=== PATIENT | female | born 1940 | race Caucasian/White ===

== ENCOUNTER 2021-07-11 12:15 | Emergency (ER) | payer MEDICARE, SELFPAY ==
[2021-07-11] VITALS (13 sets, daily range): BP systolic 148–224; BP diastolic 80–115; PULSE 71–105; RESP 19–28; O2SAT 90–98
--- NOTE | 2021-07-11 12:20 | DI.RAD.S_ITS ---
PROCEDURE: XR CHEST 1V INDICATIONS: Chest pain and shortness of breath TECHNIQUE: One view of the chest was acquired. COMPARISON: None. FINDINGS: Surgical changes and devices: None. Lungs and pleura: Lungs are clear. No pleural effusions or pneumothorax. Mediastinum: Mediastinal contours appear normal. Heart size is normal. Bones and chest wall: No suspicious bony lesions. Overlying soft tissues appear unremarkable. IMPRESSION: No acute cardiopulmonary pathology. Dictated by: Omar Reynolds M.D. on 07/11/2021 at 12:55 Approved by: Omar Reynolds M.D. on 07/11/2021 at 12:56
[2021-07-11 12:27] LABS: Add Manual Diff / Slide Review NO; Basophils Absolute Auto 100 /uL (0-100); Basophils Percent Auto 1.3 % (0-2); Eosinophils Absolute Auto 1300 /uL (0-450); Hematocrit 42.6 % (36-46); Hemoglobin 13.8 g/dL (12.0-16.0); Lymphocytes Absolute Auto 2600 /uL (1100-4500); Lymphocytes Percent Auto 27.2 % (25-40); Mean Corpuscular HGB Conc 32.5 % (30-36); Mean Corpuscular Hemoglobin 28.4 PG (26-34); Mean Corpuscular Volume 87.5 fL (80-100); Monocytes Absolute Auto 700 /uL (0-900); Monocytes Percent Auto 7.7 % (3-14); Neutrophils Absolute Auto 5000 /uL (1500-7000); Neutrophils Percent Auto 50.8 % (50-75); Platelet Count 257 X10^3/uL (150-400); Red Blood Cell Count 4.87 X10^6/uL (4.0-5.2); White Blood Cell Count 9.7 X10^3/uL (4.5-11.0)
[2021-07-11 12:34] LABS: INR 2.7 (0.9-1.3); Prothrombin Time 30.3 SECONDS (10.1-12.7)
[2021-07-11 12:39] LABS: Alanine Aminotransferase 19 IU/L (<35); Albumin 4.3 g/dL (3.5-5.0); Albumin Globulin Ratio 1.3 (1.0-2.8); Alkaline Phosphatase 81 U/L (38-126); Aspartate Aminotransferase 49 IU/L (14-36); BUN Creatinine Ratio 19.4 (6-22); Bilirubin Total 0.6 mg/dL (0.2-1.3); Blood Urea Nitrogen 12 mg/dL (7-17); Calcium 9.9 mg/dL (8.4-10.2); Carbon Dioxide 28 mmol/L (22-32); Chloride 101 mmol/L (98-107); Creatine Kinase 33 U/L (30-135); Estimated Glomerular Filt Rate > 60.0 mL/min (>60); Globulin 3.2 g/dL (1.7-4.1); Glucose 107 mg/dL (80-110); HEMOLYSIS < 15 (0-50); Lipase 24 U/L (23-300); Potassium 4.6 mmol/L (3.4-5.1); Sodium 137 mmol/L (137-145); Total Protein 7.5 g/dL (6.3-8.2)
--- NOTE | 2021-07-11 12:40 | ED.GENADULT ---
HPI - General Adult General Chief complaint: Shortness of Breath/Dyspnea Stated complaint: Chest pain and SOB Time Seen by Provider: 07/11/21 12:19 Source: patient and EMS Mode of arrival: EMS History of Present Illness HPI narrative: 80-year-old female. History of atrial fibrillation and COPD. Uses oxygen at home at night. Also has a prescription for Lasix. Did not take her Lasix this morning because she was ?going out ?she states she has a difficult time controlling her urine I did not want after urinate. [place] Had a fairly sudden onset of shortness of breath and some chest discomfort. She took a couple puffs of her inhaler. He did not improve the symptoms. When EMS arrived they gave her a DuoNeb. She states this did help her symptoms somewhat. She also received aspirin prior to arrival. After the DuoNeb her chest pain resolved. She is not currently having chest pain. She feels like she is better than what she was earlier this morning but not back to baseline Related Data Home Medications Medication Instructions Recorded Confirmed atorvastatin 10 mg tablet 10 mg PO DAILY 06/30/19 07/04/21 digoxin 125 mcg (0.125 mg) tablet 125 mcg PO DAILY 06/30/19 07/04/21 fluticasone 100 mcg-salmeterol 50 1 puff INHALATION Q12H 06/30/19 07/04/21 mcg/dose blistr powdr for inhalation (Advair Diskus) ipratropium 20 mcg-albuterol 100 1 puff INHALATION Q6H 06/30/19 07/04/21 mcg/actuation mist for inhalation (Combivent Respimat) metoprolol tartrate 100 mg tablet 100 mg PO BID tab 06/30/19 07/04/21 oxycodone 10 mg tablet 10 mg PO Q8H PRN 06/30/19 07/04/21 pantoprazole 40 mg tablet,delayed 40 mg PO BID tab 06/30/19 07/04/21 release torsemide 20 mg tablet 20 mg PO DAILY 06/30/19 07/04/21 warfarin 5 mg tablet (Coumadin) 5 mg PO DAILY 06/30/19 07/04/21 Allergies Allergy/AdvReac Type Severity Reaction Status Date / Time Penicillins Allergy Verified 02/22/21 09:25 morphine AdvReac severe REECE Verified 02/22/21 09:25 adhesives AdvReac Rash Uncoded 02/22/21 09:25 Review of Systems Constitutional Constitutional: Denies fever(s) and Denies headache(s) Eyes Eyes: Reports system reviewed and no additional complaints, except as documented ENT Ears, Nose, Mouth, and Throat: Denies headache(s) Cardiovascular Cardiovascular: Reports as per HPI and Reports system reviewed and no additional complaints, except as documented Respiratory Respiratory: Reports as per HPI and Reports system reviewed and no additional complaints, except as documented Gastrointestinal Gastrointestinal: Reports as per HPI and Reports system reviewed and no additional complaints, except as documented Musculoskeletal Musculoskeletal: Reports system reviewed and no additional complaints, except as documented Integumentary/Breasts Skin/Breast: Reports system reviewed and no additional complaints, except as documented Neurologic Neurologic: Denies headache(s) Hematologic/Lymphatic On Anticoagulants: Yes Patient History Medical History Anxiety Asthma Atrial fibrillation (~2015) Cataracts, bilateral (~2008) Chronic back pain Colon polyps (~2013) Depression Diabetes mellitus Fecal incontinence (~2018) Foot pain Frequent UTI (~1966) GERD (gastroesophageal reflux disease) (~1969) Glaucoma (~2005) H/O vaginal delivery Headache Heart failure (~2015) Hepatitis C History of urinary incontinence (~1966) Macular degeneration Osteoarthritis Osteoporosis Pulmonary embolism Stroke (~2015) Vaginal prolapse (~1966) Vision disorder Surgical History Anesthesia Cystocele Cystocele with rectocele (~1966) H/O foot surgery (~1989) H/O hernia repair (~2017) H/O hysterectomy for benign disease (~1962) H/O removal of cyst History of cholecystectomy (~1969) History of left oophorectomy Family History Father No problems noted. Mother Bone cancer Brother Diabetes mellitus History of heart disease Hyperlipidemia Hypertension Brother History of heart disease Sister Cancer Sister History of heart disease Social History Smoking Status: Smoker, status unknown Smoking Status: Smoker, status unknown Substance Use Type: does not use Exam Initial Vital Signs Initial Vital Signs: Vital Signs Pulse Rate 93 H 07/11/21 12:15 Respiratory Rate 28 H 07/11/21 12:15 Blood Pressure 224/105 H 07/11/21 12:15 Pulse Oximetry 90 L 07/11/21 12:15 HENMT Head: normal to inspection and normocephalic Eyes General: appearance normal, both eyes and all related structures Resp Effort & Inspection: normal respiratory effort Auscultation: clear to auscultation bilaterally Cardio Rate: regular rate Rhythm: abnormal rhythm GI Inspection: normal to inspection Skin General: no rashes or lesions noted Neuro General: patient alert, patient awake and moves all extremities Speech: speech normal Extrem General: capillary refill normal and No edema Psych Appearance: grossly normal and well kempt Scores GCS [place] coma scale eye opening: Spontaneous [place] coma scale verbal response: Orientated [place] coma scale motor response: Obey commands [place] coma scale total score: 15 Course Orders Ordered: ED Orders 07/11/21 12:19 COVID19 -Nasal swab/Pre-Proc Stat Complete Blood Count AUTO DIFF Stat Comprehensive Metabolic Panel Stat Lipase Stat NT-proBNP (BNP-Adult 18+) Stat Prothrombin Time INR Stat Troponin & CK Cardiac Panel Stat 07/11/21 12:20 XR chest 1V Stat EKG-12 Lead Stat RT Consult Eval and Treat Now Discontinued Medications Albuterol/Ipratropium (Albuterol/Ipratropium 3 Ml Ampul) 3 ml INH Q20M AMBROSE Stop: 07/11/21 13:06 Last Admin: 07/11/21 13:23 Dose: 3 ml Documented by: Admin: 07/11/21 13:09 Dose: 3 ml Documented by: LINDA Furosemide (Furosemide 40 Mg/4 Ml Vial) 40 mg IV NOW ONE Stop: 07/11/21 12:42 Last Admin: 07/11/21 13:21 Dose: 40 mg Documented by: KATYA Methylprednisolone (Methylprednisolone 125 Mg/2 Ml Vial) 125 mg IV NOW ONE Stop: 07/11/21 12:42 Last Admin: 07/11/21 13:21 Dose: 125 mg Documented by: KATYA Vital Signs Vital signs: Vital Signs - 8 hr 07/11/21 12:15 07/11/21 12:21 07/11/21 12:23 Pulse Rate 93 H 71 94 H Respiratory Rate 28 H 24 Blood Pressure 224/105 H 221/105 H Pulse Oximetry 90 L 91 90 L 07/11/21 12:30 07/11/21 13:00 07/11/21 13:01 Pulse Rate 91 H 96 H 96 H Respiratory Rate 20 19 20 Blood Pressure 173/92 H 187/97 H Pulse Oximetry 98 98 97 07/11/21 13:10 07/11/21 13:30 07/11/21 14:00 Pulse Rate 94 H 95 H 96 H Respiratory Rate 24 23 Blood Pressure 169/110 H Pulse Oximetry 96 96 07/11/21 14:01 Pulse Rate 102 H Respiratory Rate Blood Pressure 148/110 H Pulse Oximetry Medical Decision Making Lab Data Lab results reviewed: Yes I reviewed the patient's lab results. Result diagrams: 07/11/21 12:19 07/11/21 12:19 Labs: Lab Results 07/11/21 07/11/21 07/11/21 Range/Units 12:19 12:19 12:19 WBC 9.7 (4.5-11.0) X10^3/uL RBC 4.87 (4.0-5.2) X10^6/uL Hgb 13.8 (12.0-16.0) g/dL Hct 42.6 (36-46) % MCV 87.5 (80-100) fL MCH 28.4 (26-34) PG MCHC 32.5 (30-36) % RDW 15.0 H (11.6-14.8) % Plt Count 257 (150-400) X10^3/uL Neut % (Auto) 50.8 (50-75) % Lymph % (Auto) 27.2 (25-40) % [place] % (Auto) 7.7 (3-14) % Eos % (Auto) 13.0 H (2-4) % Baso % (Auto) 1.3 (0-2) % Neut # (Auto) 5000 (9557-4584) /uL Lymph # (Auto) 2600 (4354-6663) /uL [place] # (Auto) 700 (0-900) /uL Eos # (Auto) 1300 H (0-450) /uL Baso # (Auto) 100 (0-100) /uL PT 30.3 H (10.1-12.7) SECONDS INR 2.7 H (0.9-1.3) Sodium 137 (137-145) mmol/L Potassium 4.6 (3.4-5.1) mmol/L Chloride 101 (98-107) mmol/L Carbon Dioxide 28 (22-32) mmol/L BUN 12 (7-17) mg/dL Creatinine 0.62 (0.52-1.04) mg/dL Estimated GFR > 60.0 (>60) mL/min BUN/Creatinine Ratio 19.4 (6-22) Glucose 107 (80-110) mg/dL Calcium 9.9 (8.4-10.2) mg/dL Total Bilirubin 0.6 (0.2-1.3) mg/dL AST 49 H (14-36) IU/L ALT 19 (<35) IU/L Alkaline Phosphatase 81 (38-126) U/L Total Creatine Kinase 33 (30-135) U/L CK-MB (CK-2) TNP CK-MB (CK-2) Rel Index TNP Troponin I < 0.012 (0.01-0.034) ng/mL NT-Pro-B Natriuret Pep (<450) pg/mL Total Protein 7.5 (6.3-8.2) g/dL Albumin 4.3 (3.5-5.0) g/dL Globulin 3.2 (1.7-4.1) g/dL Albumin/Globulin Ratio 1.3 (1.0-2.8) Lipase 24 (23-300) U/L SARS-CoV-2 (PCR) (Negative) 07/11/21 07/11/21 Range/Units 12:19 12:19 WBC (4.5-11.0) X10^3/uL RBC (4.0-5.2) X10^6/uL Hgb (12.0-16.0) g/dL Hct (36-46) % MCV (80-100) fL MCH (26-34) PG MCHC (30-36) % RDW (11.6-14.8) % Plt Count (150-400) X10^3/uL Neut % (Auto) (50-75) % Lymph % (Auto) (25-40) % [place] % (Auto) (3-14) % Eos % (Auto) (2-4) % Baso % (Auto) (0-2) % Neut # (Auto) (8011-3147) /uL Lymph # (Auto) (5271-1512) /uL [place] # (Auto) (0-900) /uL Eos # (Auto) (0-450) /uL Baso # (Auto) (0-100) /uL PT (10.1-12.7) SECONDS INR (0.9-1.3) Sodium (137-145) mmol/L Potassium (3.4-5.1) mmol/L Chloride (98-107) mmol/L Carbon Dioxide (22-32) mmol/L BUN (7-17) mg/dL Creatinine (0.52-1.04) mg/dL Estimated GFR (>60) mL/min BUN/Creatinine Ratio (6-22) Glucose (80-110) mg/dL Calcium (8.4-10.2) mg/dL Total Bilirubin (0.2-1.3) mg/dL AST (14-36) IU/L ALT (<35) IU/L Alkaline Phosphatase (38-126) U/L Total Creatine Kinase (30-135) U/L CK-MB (CK-2) CK-MB (CK-2) Rel Index Troponin I (0.01-0.034) ng/mL NT-Pro-B Natriuret Pep 1390 H (<450) pg/mL Total Protein (6.3-8.2) g/dL Albumin (3.5-5.0) g/dL Globulin (1.7-4.1) g/dL Albumin/Globulin Ratio (1.0-2.8) Lipase (23-300) U/L SARS-CoV-2 (PCR) Negative (Negative) Imaging Data Chest x-ray: Radiologist's Impression: [address] [address] XRay Report Signed Patient: Darlene Shahid MR#: [id number] : 1940 Acct:[id number] Age/Sex: 80 / F Date of Service: 07/11/21 Loc: ED Accession Number: [id number] ?? Procedure: XR chest 1V Ordering Provider: Raheel Cabrera D.O. PROCEDURE:? XR CHEST 1V ? INDICATIONS:? Chest pain and shortness of breath ? TECHNIQUE:? One view of the chest was acquired.? ? COMPARISON:? None. ? FINDINGS:? ? Surgical changes and devices:? None.? ? Lungs and pleura:? Lungs are clear.? No pleural effusions or pneumothorax.? ? Mediastinum:? Mediastinal contours appear normal.? Heart size is normal.? ? Bones and chest wall:? No suspicious bony lesions.? Overlying soft tissues appear unremarkable.? ? IMPRESSION:? No acute cardiopulmonary pathology. ? ? Dictated by: Omar Reynolds M.D. on 07/11/2021 at 12:55 ? ? Approved by: Omar Reynolds M.D. on 07/11/2021 at 12:56? ECG Data Attestation: I personally reviewed and interpreted this ECG as follows: Interpretation: Atrial fibrillation Right bundle branch block QRS 136 milliseconds Normal axis Nonspecific ST T wave changes MDM Narrative Medical decision making narrative: Patient reports much improvement of her symptoms after nebulizer treatments here in the emergency department. She states she feels like she is at baseline. Not requiring oxygen. Low suspicion for ACS. I suspect that this was a COPD exacerbation. Chest x-ray shows no signs of pneumonia. No indication for antibiotics. Will discharge home to have her continue taking all of her medications as directed. She was given return precautions. She expressed understanding agreement. Discharge Plan Departure Patient Disposition: Home Clinical Impression: Acute exacerbation of chronic obstructive airways disease Instructions: DI for Chronic Obstructive Pulmonary Disease Activity Restrictions/Additional Instructions: I recommend that you continue to take all of your medications as directed. Keep all of your scheduled medical appointments. Contact your primary doctor for a follow-up. Return to the emergency department for any new or worsening symptoms Prescriptions: No Action torsemide 20 mg tablet 20 mg PO DAILY RF: 0 digoxin 125 mcg tablet 125 mcg PO DAILY RF: 0 metoprolol tartrate 100 mg tablet 100 mg PO BID RF: 0 pantoprazole 40 mg tablet,delayed release (DR/EC) 40 mg PO BID RF: 0 oxycodone 10 mg tablet 10 mg PO Q8H PRNRF: 0 atorvastatin 10 mg tablet 10 mg PO DAILY RF: 0 fluticasone propion-salmeterol [Advair Diskus] 100-50 mcg/dose blister with device 1 puff INHALATION Q12H RF: 0 Combivent Respimat 20-100 mcg/actuation mist 1 puff INHALATION Q6H RF: 0 warfarin [Coumadin] 5 mg tablet 5 mg PO DAILY RF: 0 Referrals: Miscellaneous,Doctor, MD [Primary Care Provider] -
[2021-07-11 12:48] LABS: COVID19 -Nasal RAPID Negative (Negative); NT-proBNP (BNP-Adult 18+) 1390 pg/mL (<450)
[2021-07-11 12:51] LABS: Troponin I < 0.012 ng/mL (0.01-0.034)
[2021-07-11] MEDS: ALBUTEROL/IPRATROPIUM 3 ML AMPUL INH ×2 (13:09→13:23)
[2021-07-11] MEDS: methylPREDNISolone 125 MG/2 ML VIAL IV (13:21)
[2021-07-11] MEDS: FUROSEMIDE 40 MG/4 ML VIAL IV (13:21)
== END 2021-07-11 15:15 | disposition home or self-care (01) ==
PROVIDERS: Emergency Provider Emergency Medicine
DX: J44.1 Chronic obstructive pulmonary disease with (acute) exacerbation (principal); R06.02 Shortness of breath; R07.9 Chest pain, unspecified; Z20.822 Contact with and (suspected) exposure to COVID-19
CPT/HCPCS: 71045; 80053; 82550; 83690; 83880; 84484; 85025; 85610; 87635; 93005; 93010; 94640; 96374; 96375; 99284; 99285; C9803; J1940; J2930